=== PATIENT | female | born 1995 | race African-American/Black ===

== ENCOUNTER 2022-02-05 12:31 | Outpatient (REF) | payer OTHER, SELFPAY ==
--- NOTE | ~2022-02-05 | XR_ITS ---
EXAMINATION: XR LUMBOSACRAL SPINE CLINICAL INFORMATION: Pain. COMPARISON: None TECHNIQUE: Three views of the lumbosacral spine. FINDINGS: Questionable mild posterior coccygeal subluxation. No evidence of acute compression deformities or subluxation of the lumbar spine. Disc spaces are preserved. The posterior elements are normal in appearance. Sacroiliac joints are symmetric. Nonobstructive bowel gas pattern. Small pelvic phleboliths are noted. XR/XR lumbar spine 2-3V IMPRESSION: Suspect mild posterior subluxation of the coccyx. Correlate for point tenderness and history of a prior injury. Normal radiographic appearance of the lumbar spine.
--- NOTE | ~2022-02-05 | XR_ITS ---
EXAMINATION: XR KNEE, RIGHT CLINICAL INFORMATION: Pain. COMPARISON: None TECHNIQUE: Four views of the right knee. FINDINGS: No acute fractures or malalignment. No significant degenerative changes. No erosions. No chondrocalcinosis. Small joint effusion. XR/XR knee RT 3V IMPRESSION: No acute osseous abnormalities. Small joint effusion.
[2022-02-05 12:49] LABS: MANUAL DIFF FLAG NO
[2022-02-05 12:55] LABS: Basophils Percent Auto 0.4 % (0-2); Eosinophils Percent Auto 0.5 % (0-4); Hematocrit 28.8 % (37.0-47.0); Imm Gran Abs Auto 0.02 X10*3/uL (0.00-0.03); Imm Gran Pct Auto 0.3 % (0.0-0.4); Lymphocytes Absolute Auto 3.1 X10*3/uL (1.2-4.9); Lymphocytes Percent Auto 40.8 % (20-40); Mean Corpuscular HGB Conc 31.3 g/dl (31.0-35.0); Mean Corpuscular Hemoglobin 23.7 pg (27.0-33.0); Mean Corpuscular Volume 75.8 fL (80.0-98.0); Mean Platelet Volume 8.1 fL (9.4-12.3); Monocytes Absolute Auto 0.7 X10*3/uL (0.1-1.2); Monocytes Percent Auto 9.1 % (2-11); Neutrophils Absolute Auto 3.7 x10*3/uL (2.0-8.3); Neutrophils Percent Auto 48.9 % (45-73); Platelet Count 469 X10*3/uL (160-400); Red Cell Distribution Width 17.2 % (11.0-16.0); White Blood Count 7.5 X10*3/uL (4.8-10.8)
[2022-02-05 13:22] LABS: Alanine Aminotransferase 23 U/L (0-31); Albumin Level 3.9 g/dL (3.5-5.0); Alkaline Phosphatase 71 U/L (39-117); Anion Gap 11 (12-20); Aspartate Amino Transferase 19 U/L (5-31); Bilirubin Total 0.2 mg/dL (0.0-1.0); Blood Urea Nitrogen 10 mg/dL (9-16); Calcium 9.1 mg/dL (8.4-10.2); Carbon Dioxide 23 mmol/L (22-29); Chloride 108 mmol/L (96-108); Estimated Glomerular Filt Rate > 60; Glucose Fasting 93 mg/dL (60-99); Potassium 4.3 mmol/L (3.3-5.1); Sodium 138 mmol/L (135-145); Total Protein 7.1 g/dL (6.5-8.0)
[2022-02-05 13:44] LABS: TSH reflex Free T4 1.27 uIU/mL (0.32-4.0); Vitamin D 25-OH Total 10.2 ng/mL (>30)
[2022-02-05 14:39] LABS: Folate 10.8 ng/mL (> or = 4.0); Vitamin B12 312 pg/mL (200-900)
== END 2022-02-05 12:32 | disposition home or self-care (01) ==
LOC: HO.LAB 12:31
PROVIDERS: PCP Nurse Practitioner Family; Visit Provider Nurse Practitioner Family
DX: Z13.29 Encounter for screening for other suspected endocrine disorder (principal); M54.9 Dorsalgia, unspecified; M25.561 Pain in right knee; Z76.89 Persons encountering health services in other specified circumstances
CPT/HCPCS: 36415; 72100; 73562; 80053; 82306; 82607; 82746; 84443; 85025

== ENCOUNTER 2022-04-22 11:00 | Outpatient (RCR) | payer OTHER, SELFPAY ==
[2022-04-01 11:10] VITALS: BP 174/89; PULSE 79; O2SAT 98
--- NOTE | 2022-04-01 12:13 | MHC.PT.EP ---
[facility] [place] Office [place] Office [place] Office [address] Tiana Rendon [address] [phone] F: [phone] F: [phone] F: [phone] F: [phone] Physical Therapy Plan of Care Date of Evaluation: Date of Surgery: Diagnosis: dorsalgia Assessment: 26 YO FEMALE REF TO PT WITH 2 YR H/O PROGRESSIVE LBP AND H/O Rt KNEE PAIN. SHE RESIDES W BOYFRIEND AND 2 CHILDREN (1 AND 2 YO)- SHE IS A STAY AT HOME MOTHER. OBJECTIVE FINDINGS: DECR POSTURAL AWARENESS, WEAK ABDOMINALS/ PROX LEs, LIMITED TRUNK AROM AND HIP IR, AND FLUCTUATING PAIN IN JOSE LS WELL LEFT THORACIC. FUNCTIONALLY, Pt HAS LIMITED FUNCTIONAL SQUAT MECHANICS, LIMITED MONI TO HOUSE CHORES/ INCR WALKING/ BENDING/ CARRYING/ SLEEPING. 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 DUE TO CHILDCARE ISSUES, Pt IS REQUESTING PT 1x WK TO ADDRESS THE ABOVE FINDINGS, DEV A PROGR HEP, EASE TISSUE TENSION, AND DEV SELF-SX/ PAIN MGMT TECHN. Frequency and Duration: The patient will be seen 1 x WK x 8 WKS Short Term Goals: *Pt DEMON INDEP SELF-POSTURAL / BODY MECH CORRECTION W 3:3 TASKS IN 2 WKS *Pt'S LBP DECR TO 2-3/10 W REG ADLs IN 2 WKS *Pt DEMON MORE EFFICIENT FUNCT SQUAT MECH W RESPECT TO Rt KNEE PAIN IN 3 WKS Legal Operations Manager Goals: Pt INDEP W HEP PROGRESSION AND SELF-SX MGMT STRATEGIES IN 8 WKS Pt RESUME REG ADLs EVIDENT W IMPROVED OSWESTRY SCORE BY 5-8 POINTS (AT EVAL 20/45) IN 8 WKS Pt INCR LE STRENGTH BY 1 GRADE IN 8 WKS* Treatment Plan: Modalities to reduce pain, spasms and effusion. Manual therapy to restore motion and function. Therapeutic exercise to improve strength and flexibility. Neuromuscular re-education for posture and balance. Therapeutic activities to return to functional activities of daily living. Electronically signed by: Stephania Shaffer,PT Please sign and return to therapist. Thank you for your referral.
--- NOTE | 2022-05-07 07:56 | MHC.PT.DC ---
[facility] [place] Office [place] Office [place] Office [address] Tiana Rendon [address] [phone] F: [phone] F: [phone] F: [phone] F: [phone] Physical Therapy Discharge Report Diagnosis: dorsalgia Date of Surgery: Date of Evaluation: 04/01/22 Date of Discharge: 05/07/22 Treatments to Date: 3 Cancellations to Date: 1 No Shows to Date: 2 Discharge Status: Improved Function Independent with HEP Visit Non-compliance Discharge Summary: Pt BENEFITTED FROM PT TO INITIATE HEP AND SHE HAS BEEN EDUC RE POSTURE, BODY MECH, AND INITIATED PAIN MANAGEMENT TECHN. Pt DID NOT MEET HER PT GOALS AT THIS TIME DUE TO DECREASED COMPLIANCE W SCHEDULED PT APPTS AND IS D/C'D PER DEPT POLICY. Electronically signed by: Stephania Shaffer,PT Please sign and return to therapist. Thank you for your referral.
== END 2022-05-07 07:58 | disposition home or self-care (01) ==
LOC: HO.PT 11:00
PROVIDERS: PCP Nurse Practitioner Family; Visit Provider Nurse Practitioner Family
DX: M54.9 Dorsalgia, unspecified (principal)
CPT/HCPCS: 97110; 97162

== ENCOUNTER 2022-10-21 12:49 | Outpatient (REF) | payer OTHER, SELFPAY ==
--- NOTE | ~2022-10-21 | XR_ITS ---
EXAMINATION: XR KNEE, LEFT CLINICAL INFORMATION: Left knee pain. COMPARISON: None TECHNIQUE: Three views of the left knee. FINDINGS: There is no evidence of acute fracture or dislocation of the left knee. Left knee joint spaces are maintained. No effusion is appreciated. No destructive bony lesion. There appears be slight irregularity about the medial facet of the patella only on sunrise view and this may be artifactual in nature rather than possible chondromalacia patella since no definite subchondral cyst or diminished density as a secondary sign is seen within the patella. Clinical correlation to site of pain recommended. XR/XR knee LT 3V IMPRESSION: No significant bony abnormality of the left knee identified. Question possible chondromalacia patella medial facet of the patellofemoral joint.
--- NOTE | ~2022-10-21 | XR_ITS ---
EXAMINATION: XR SACRUM AND COCCYX CLINICAL INFORMATION: Sacrococcygeal disorder. COMPARISON: Lumbosacral spine of 02/06/2022. TECHNIQUE: AP pelvis and 2 views of the sacrum. FINDINGS: There is no evidence of acute fracture or diastases of the pelvis. Sacroiliac joints appear unremarkable. Hip joint spaces are maintained. No destructive bony lesions are identified. No significant abnormality of the lower lumbar spine identified. There is stable question subluxation of the coccyx compared to study of 02/05/2022. XR/XR sacrum coccyx min 2V IMPRESSION: Stable appearance compared to study of 02/05/2022 without evidence of acute fracture or diastases of the pelvis and with the appearance of posterior subluxation of the coccyx.
== END 2022-10-21 12:50 | disposition home or self-care (01) ==
LOC: HO.XRAY 12:49
PROVIDERS: PCP Nurse Practitioner Family; Visit Provider Nurse Practitioner Family
DX: M25.562 Pain in left knee (principal); G89.29 Other chronic pain; M53.3 Sacrococcygeal disorders, not elsewhere classified; M47.816 Spondylosis without myelopathy or radiculopathy, lumbar region; M62.830 Muscle spasm of back
CPT/HCPCS: 72220; 73562; 99202

== ENCOUNTER 2022-11-12 07:15 | Outpatient (REF) | payer OTHER, SELFPAY | END 2022-11-12 07:16 | disposition home or self-care (01) | LOC: HO.MRI 07:15 | PROVIDERS: PCP Nurse Practitioner Family; Visit Provider Nurse Practitioner Family | DX: Z13.89 Encounter for screening for other disorder (principal) ==

== ENCOUNTER → 2022-12-09 15:36 | Outpatient (BNVA) | payer OTHER, SELFPAY | PROVIDERS: PCP Nurse Practitioner Family; Visit Provider Nurse Practitioner Family ==

== ENCOUNTER 2023-02-17 10:00 | Outpatient (RCR) | payer OTHER, SELFPAY ==
[2022-12-02 12:09] VITALS: BP 139/92
--- NOTE | 2022-12-02 13:46 | MHC.PT.EP ---
[facility] [place] Office [place] Office [place] Office [address] Tiana Rendon [address] [phone] F: [phone] F: [phone] F: [phone] F: [phone] Physical Therapy Plan of Care Date of Evaluation: Date of Surgery: N/A Diagnosis: Pain in left knee Chondromalacia, left knee Assessment: Pt is a pleasant 27yo F who presents to PT with L knee pain. She presents to PT with current impairments in pain, decreased L knee flexion, decreased LE strength, L genu recurvatum, decreased balance, and impaired gait. She is limited functionally by getting in/out of shower, putting shoes on, prolonged standing, bending, walking, and stair navigation. She is a good candidate for skilled PT in order to address current impairments to facilitate return to PLOF. She is recommended to be seen 2x/week for 4 weeks and will be reassessed at that time. Frequency and Duration: The patient will be seen 2x/week for 4 weeks Short Term Goals: Pt will be I with HEP to promote self management of symptoms Pt will improve L knee flexion by at least 10 degrees [facility] Goals: Pt will achieve full ROM and strength throughout L knee to assist with standing and walking Pt will ascend/descend 1 flight of stairs with reciprocal gait pattern Pt will demonstrate improvements in function as evidenced by statistically significant improvement in LEFI outcome measure Treatment Plan: Modalities to reduce pain, spasms and effusion. Manual therapy to restore motion and function. Therapeutic exercise to improve strength and flexibility. Neuromuscular re-education for posture and balance. Therapeutic activities to return to functional activities of daily living. Electronically signed by: Nicole Reyes, PT, DPT Please sign and return to therapist. Thank you for your referral.
--- NOTE | 2023-04-01 14:21 | MHC.PT.DC ---
[facility] [place] Office [place] Office [place] Office [address] Tiana Rendon [address] [phone] F: [phone] F: [phone] F: [phone] F: [phone] Physical Therapy Discharge Report Diagnosis: Pain in left knee Chondromalacia, left knee Date of Surgery: N/A Date of Evaluation: 12/02/22 Date of Discharge: 04/01/23 Treatments to Date: 5 Cancellations to Date: 5 No Shows to Date: 5 Discharge Status: Visit Non-compliance Discharge Summary: Pt was seen for PT from 12/02/22-02/17/23. Her last attended appointment was 02/17/23. She has had 5 cancellations and 3 no-show appointments since SOC. She is being D/C from skilled PT. Pt current level of function unknown at this time. Electronically signed by: Nicole Reyes, PT, DPT Please sign and return to therapist. Thank you for your referral.
== END 2023-04-01 14:21 | disposition home or self-care (01) ==
LOC: HO.PT 10:00
PROVIDERS: PCP Nurse Practitioner Family; Visit Provider Nurse Practitioner Family
DX: M25.562 Pain in left knee (principal); M94.262 Chondromalacia, left knee
CPT/HCPCS: 97110; 97162; 97164; 97530

== ENCOUNTER 2023-02-24 08:44 | Outpatient (REF) | payer OTHER, SELFPAY ==
--- NOTE | ~2023-02-24 | XR_ITS ---
EXAMINATION: XR FOOT, LEFT CLINICAL INFORMATION: Left foot pain COMPARISON: None available. TECHNIQUE: AP, lateral, and oblique views of the left foot. FINDINGS: There is soft tissue swelling seen adjacent to the lateral aspect 5th metatarsal. No acute fracture or dislocation is evident. Joint spaces are maintained. There is some degenerative spurring with sclerosis seen about the talar navicular joint and naviculocuneiform joints. XR/XR foot LT 2V IMPRESSION: No acute fracture, dislocation or significant bony abnormality of the left foot identified. Mild soft tissue swelling laterally. Mild degenerative change as described.
[2023-02-24 10:19] LABS: Alanine Aminotransferase 23 U/L (0-31); Alkaline Phosphatase 81 U/L (39-117); Anion Gap 15 (12-20); Aspartate Amino Transferase 34 U/L (5-31); Bilirubin Total 0.3 mg/dL (0.0-1.0); Blood Urea Nitrogen 12 mg/dL (9-16); Calcium 9.4 mg/dL (8.4-10.2); Carbon Dioxide 23 mmol/L (22-29); Chloride 107 mmol/L (96-108); Cholesterol 180 mg/dL; Estimated Glomerular Filt Rate > 60; Glucose Random 93 mg/dL (60-115); HDL Cholesterol 55 mg/dL; Iron 31 mcg/dL (30-160); LDL Cholesterol Calculated 106 mg/dl; Percent Iron Saturation 8 % (15-50); Potassium 3.7 mmol/L (3.3-5.1); Sodium 141 mmol/L (135-145); Total Iron Binding Capacity 402 mcg/dL (228-428); Total Protein 7.6 g/dL (6.5-8.0); Triglycerides 97 mg/dL; Unsaturated Iron Binding 371 ug/dL
[2023-02-24 10:24] LABS: Ferritin 16 ng/mL (10-122); TSH reflex Free T4 1.28 uIU/mL (0.32-4.0); Vitamin D 25-OH Total 13.7 ng/mL (>30)
== END 2023-02-24 08:45 | disposition home or self-care (01) ==
LOC: HO.XRAY 08:44
PROVIDERS: PCP Nurse Practitioner Family; Visit Provider Nurse Practitioner Family
DX: M79.672 Pain in left foot (principal); Z13.220 Encounter for screening for lipoid disorders; D64.9 Anemia, unspecified; Z13.29 Encounter for screening for other suspected endocrine disorder; Z13.21 Encounter for screening for nutritional disorder
CPT/HCPCS: 36415; 73620; 80053; 80061; 82306; 82728; 83540; 84443

== ENCOUNTER 2023-04-04 13:53 | Emergency (ER) | payer OTHER, SELFPAY ==
--- NOTE | 2023-04-04 13:56 | ED.GENADULT ---
HPI - General Adult General Chief complaint: Extremity Problem Stated complaint: Swollen Feet Time Seen by Provider: 04/04/23 14:59 Source: patient Mode of arrival: ambulatory Limitations: no limitations History of Present Illness HPI narrative: Patient is a 27 year old assigned female at with a history of presenting to the emergency department today with left foot and left hand pain. Patient states that over the last 4 months she has had intermittent left foot and left hand pain. Patient states that she has known osteoarthritis. Patient denies any dizziness, lightheadedness, abdominal pain, nausea, vomiting, fever, chills, blurry vision, double vision, loss of vision, chest pain, difficulty breathing, shortness of breath, back pain, night sweats, pain with urination, increased urinary frequency, increased urinary urgency, blood in her urine or stool, syncope or a near syncopal episode, recent trauma or falls, bowel incontinence, bladder incontinence, bowel retention, bladder retention, or any other complaints at this time. Onset (ago): month(s) (4) Location: left, upper extremity and lower extremity Severity: mild Severity scale (1-10): 3 Quality: aching and dull Pain Consistency: constant Relieving factors: none Exacerbating factors: none Associated symptoms: denies other symptoms Treatments prior to arrival: none Related Data Previous Rx's Medication Instructions Recorded ascorbic acid (vitamin C) 250 mg 250 mg PO DAILY #90 tabs 02/07/22 tablet ferrous sulfate 325 mg (65 mg 325 mg PO DAILY #90 tabs 02/07/22 iron) tablet lidocaine 4 % topical patch 2 patch topical DAILY PRN pain #30 09/10/22 (Aspercreme (lidocaine)) ea diclofenac sodium 1 % topical gel 2 g topical QID PRN pain #100 grams 12/09/22 (Arthritis Pain (diclofenac)) ibuprofen 800 mg tablet 800 mg PO Q8H PRN pain #30 tabs 12/09/22 methocarbamol 750 mg tablet 750 mg PO BID PRN pain 30 days #60 12/09/22 tabs cholecalciferol (vitamin D3) 1,250 1,250 mcg PO QWEEK #12 caps 02/25/23 mcg (50,000 unit) capsule naproxen 500 mg tablet 500 mg PO BID 7 days #14 tabs 04/04/23 prednisone 20 mg tablet 20 mg PO DAILY 7 days #7 tabs 04/04/23 Allergies Allergy/AdvReac Type Severity Reaction Status Date / Time No Known Allergies Allergy Verified 02/24/23 08:16 [No Known Allergies*] Review of Systems Constitutional: Constitutional: Reports no additional constitutional complaints, Denies chills, Denies fever(s) and Denies night sweats Eyes: Eyes: Reports no additional eye complaints, Denies blurry vision, Denies change in vision, Denies diplopia, Denies eye discharge, Denies loss of vision and Denies eye pain ENT: Denies dizziness Cardiovascular: Cardiovascular: Reports no additional cardiovascular complaints, Denies chest pain, Denies lightheadedness, Denies Loss of Consciousness and Denies dyspnea Respiratory: Respiratory: Reports no additional respiratory complaints and Denies dyspnea Gastrointestinal: Gastrointestinal: Reports no additional gastrointestinal complaints, Denies abdominal pain, Denies melena, Denies hematochezia, Denies change in bowel habits and Denies change in stool character Genitourinary: Genitourinary: Denies hematuria, Denies urinary frequency, Denies dysuria, Denies urinary incontinence, Denies urinary hesitancy and Denies urinary urgency Musculoskeletal: Musculoskeletal: Reports no additional musculoskeletal complaints, Denies numbness and Denies tingling Comments: left ankle pain, left wrist pain Neurologic: Denies dizziness, Denies loss of vision, Denies numbness and Denies tingling Psychiatric: Psychiatric: Reports no additional psychiatric complaints Endocrine: Endocrine: Reports no additional endocrine complaints Hematologic/Lymphatic: Hematologic/Lymphatic: Reports no additional hematologic/lymphatic complaints Allergic/Immunologic: Allergic/Immunologic: Reports no additional allergic/immunologic complaints [facility] Past Medical History Attestation statement: The following information was validated with the patient. Source: old records reviewed and nursing notes reviewed Medical History Back pain Bilateral ankle pain Encounter to establish care Left knee pain Morbid obesity with BMI of 50.0-59.9, adult Right knee pain Screening for diabetes mellitus Screening for hypothyroidism Surgical History History of [place] teeth removed Family History Family History Mother High blood pressure Sickle cell anemia Father Cancer Social History Social History Housing: Apartment Alcohol intake: current Alcohol intake frequency: holidays/special occasions only Patient Tobacco Use Status: Current everyday Tobacco user Tobacco use type: Cigarette Cigarettes Per Day: 3 e-Cigarette/Vaping Use: Never Used Second Hand Smoke Exposure: Yes Advance Directives: No Advance Directives Information Provided: No service: No Current occupational status: unemployed Cognitive needs: No Hearing needs: No Vision needs: Yes Physical Exam ED Vital Signs: Vital Signs - 24 hr 04/04/23 13:57 Temperature 97.8 F Pulse Rate 78 Respiratory Rate 20 Blood Pressure 182/116 H Pulse Oximetry 98 Oxygen Delivery Method Room Air BMI result Body Mass Index 56.1 Const General: cooperative, no acute distress, alert and awake Nutritional Appearance: well nourished Orientation/consciousness: patient oriented x3 Limitations: no limitations HENMT Head: Yes normal to inspection and Yes atraumatic Ears: hearing grossly normal bilaterally and external ears normal General nose exam: Normal external nose present, no nasal discharge noted and no epistaxis Face and sinus: Yes normal facial exam, No abrasion and No laceration Mouth: Normal oral and palatal mucosa present, no drooling and no muffled voice Eyes General: appearance normal, both eyes and all related structures Periorbital: periorbital findings normal Eyelids: Yes eyelids normal Conjunctivae: conjunctivae normal Pupils: Equal, round and reactive pupils present EOM: EOMs intact bilaterally Neck Neck: Yes normal visual inspection, Yes full ROM and Yes no lymphadenopathy Chest Chest palpation & inspection: normal inspection of the chest Resp Effort & Inspection: normal respiratory effort and able to speak in complete sentences GI Inspection: Yes normal to inspection Neuro General: patient oriented x3 and moves all extremities Cranial nerves: Yes Equal, round and reactive pupils present Cognition (Neuro): normal cognition Motor exam (neuro): 5/5 motor strength present throughout Sensory Exam: Normal double simultaneous stimulation for sensation Coordination: [id number] test normal Extrem General: Yes normal to inspection, Yes full ROM and Yes capillary refill normal Psych Appearance: grossly normal Mental Status: mental status grossly normal Affect: normal affect Attitude: cooperative Thought process: Normal thought process present Thought content: Normal thought content present Insight: Good insight present (Psych) Course Course Course Narrative: This is a rapid medical exam: Additional HPI, ROS, PE not included below will be deferred to primary provider. Patient is a 27-year-old female with history of thrombocytopenia, lumbar spondylosis, anemia, sickle cell trait presenting to the emergency department with complaint of left hand and foot pain for 4-5 months. Had x-ray of foot and was told she had degenerative changes. Denies any fall or other trauma. Noted to be hypertensive in triage. Is not on blood pressure medication at this time, has follow up appointment in May. Plan: EKG, labs Medications Administered Discontinued Medications Generic Name Dose Route Start Last Admin Trade Name Joseluis PRN Reason Stop Dose Admin Ketorolac Tromethamine 15 mg 04/04/23 15:17 04/04/23 15:29 Ketorolac Tromethamine 15 Mg/Ml Vial IM 04/04/23 15:18 15 mg ONCE ONE Administration Medical Decision Making Medical Decision Making [facility] Narrative: Patient is a 27 year old assigned female at with a history of osteoarthritis presenting to the emergency department today with left wrist and left foot / ankle pain. Patient's physical exam was unremarkable. Patient's blood work was unremarkable. Patient's urine showed no acute process. Patient's EKG was unremarkable. I explained my physical exam findings as well as all test results to the patient. I answered all questions asked by the patient. Patient received IM Toradol which she stated helped her symptoms significantly. I stressed the importance of the patient taking her medication as prescribed. I stressed the importance of the patient following up with her primary care provider and an orthopedic provider. I stressed the importance of the patient returning to the emergency department immediately if her symptoms were to worsen or if she were to develop any dizziness, shortness of breath, difficulty breathing, chest pain, blurry vision, loss of vision, nausea, vomiting, abdominal pain, fever, chills, back pain, or any other complaints. Patient verbalized agreement and understanding with this treatment plan and discharge. Differential Diagnosis Differential Diagnoses: The differential diagnosis associated with the presentation includes Osteoarthritis NSTEMI STEMI Edema Admission/Observation Consideration of admission/observation: Escalation of care including admission/observation considered Patient would have been admitted to the hospital had her work up had any findings where hospital admission was appropriate and her clinical presentation warranted hospital admission. Lab Data [facility] Lab Attestation statement: I reviewed the patient's lab results. My interpretation of these studies and their corresponding values is that they are grossly normal. 04/04/23 14:09 04/04/23 14:09 Labs: Lab Results 04/04/23 04/04/23 04/04/23 Range/Units 14:09 14:09 14:09 WBC 8.0 (4.8-10.8) X10*3/uL RBC 4.04 L (4.20-5.50) X10*6/uL Hgb 10.5 L (12.0-16.0) g/dl Hct 32.6 L (37.0-47.0) % MCV 80.7 (80.0-98.0) fL MCH 26.0 L (27.0-33.0) pg MCHC 32.2 (31.0-35.0) g/dl RDW 15.9 (11.0-16.0) % Plt Count 424 H (160-400) X10*3/uL MPV 8.1 L (9.4-12.3) fL Immature Gran % (Auto) 0.3 (0.0-0.4) % Neut % (Auto) 57.5 (45-73) % Lymph % (Auto) 33.5 (20-40) % [place]duffie % (Auto) 8.3 (2-11) % Eos % (Auto) 0.3 (0-4) % Baso % (Auto) 0.1 (0-2) % Lymph # (Auto) 2.7 (1.2-4.9) X10*3/uL [place]duffie # (Auto) 0.7 (0.1-1.2) X10*3/uL Eos # (Auto) 0.0 (0.0-0.4) X10*3/uL Baso # (Auto) 0.0 (0.0-0.2) X10*3/uL Abs Immat Gran (auto) 0.02 (0.00-0.03) X10*3/uL Absolute Neuts (auto) 4.6 (2.0-8.3) x10*3/uL Absolute Nucleated RBC 0.000 (0.0-0.012) X10*3/uL Nucleated RBC % (auto) 0.0 (0.0-0.2) /100WBC Sodium 137 (135-145) mmol/L Potassium 4.0 (3.3-5.1) mmol/L Chloride 108 (96-108) mmol/L Carbon Dioxide 20 L (22-29) mmol/L Anion Gap 13 (12-20) BUN 9 (9-16) mg/dL Creatinine 0.81 (0.5-1.4) mg/dL Estim Creat Clear Calc 151.7 Estimated GFR > 60 Random Glucose 91 (60-115) mg/dL Calcium 8.9 (8.4-10.2) mg/dL Total Bilirubin 0.2 (0.0-1.0) mg/dL AST 21 (5-31) U/L ALT 23 (0-31) U/L Alkaline Phosphatase 71 (39-117) U/L Troponin I High Sens < 2.7 (<3.5-17.0) ng/L Total Protein 7.6 (6.5-8.0) g/dL Albumin 4.1 (3.5-5.0) g/dL Independent Interpretation I performed an independent interpretation of an: EKG Interpretation: Vent. Rate: 076 BPM ? ? Atrial Rate: 076 BPM P-R Int: 174 ms? QRS Dur: 084 ms QT Int: 418 ms ? ? ? P-R-T Axes: 038 008 003 degrees QTc Int: 470 ms ? Normal sinus rhythm Minimal voltage criteria for LVH, may be normal variant ( R in aVL ) Borderline ECG No previous ECGs available Electronically Signed By:RAMON DE JESUS MD Dictated By: Ramon De Jesus MD Signed By: Electronically signed by Ramon De Jesus MD 04/04/23 [id number] Prescription Management I considered prescription management with: Pain Medication (patient prescribed pain medication for her osteoarthritis) Discharge Plan Discharge Clinical Impression: Acute ankle pain, Acute wrist pain, Osteoarthritis Patient Disposition: Home, Self-Care Instructions: Osteoarthritis (DC), Arthralgia (ED) Additional Instructions: Follow up with your primary care provider and an orthopedic provider. Return to the emergency department immediately if your symptoms worsen or if you develop any dizziness, shortness of breath, difficulty breathing, chest pain, blurry vision, loss of vision, nausea, vomiting, abdominal pain, fever, chills, back pain, or any other complaints. Prescriptions: New prednisone 20 mg tablet 20 mg PO DAILY 7 Days Qty: 7 0RF naproxen 500 mg tablet 500 mg PO BID 7 Days Qty: 14 0RF No Action ferrous sulfate 325 mg (65 mg iron) tablet 325 mg PO DAILY Qty: 90 0RF ascorbic acid (vitamin C) 250 mg tablet 250 mg PO DAILY Qty: 90 0RF cholecalciferol (vitamin D3) 1,250 mcg (50,000 unit) capsule 1,250 mcg PO QWEEK Qty: 12 0RF lidocaine [Aspercreme (lidocaine)] 4 % adhesive patch,medicated 2 patch topical DAILY PRN (Reason: pain) Qty: 30 1RF ibuprofen 800 mg tablet 800 mg PO Q8H PRN (Reason: pain) Qty: 30 0RF diclofenac sodium [Arthritis Pain (diclofenac)] 1 % gel 2 g topical QID PRN (Reason: pain) Qty: 100 0RF Rx Instructions: apply to single elbow, wrist or hand; for hand includes palm/fingers/back of hand methocarbamol 750 mg tablet 750 mg PO BID PRN (Reason: pain) 30 Days Qty: 60 0RF Referrals: [facility] [Provider Group] (Call to establish and follow up with an orthopedic provider. ) Aruna Hidalgo FNP [Primary Care Provider] - Stand Alone Forms: Work/School Release Interventions: ED Discharge Assessment Last Done: 04/04/23 15:33 Discharge Date/Time: 04/04/23 15:33 Print Language: Slovak
[2023-04-04 13:57] VITALS: BP 182/116; PULSE 78; RESP 20; TEMP 36.6; O2SAT 98; BMI 56.1
--- NOTE | 2023-04-04 14:00 | ECG_ITS ---
Test Reason : hypertensive Blood Pressure : / mmHG Vent. Rate : 076 BPM Atrial Rate : 076 BPM P-R Int : 174 ms QRS Dur : 084 ms QT Int : 418 ms P-R-T Axes : 038 008 003 degrees QTc Int : 470 ms Normal sinus rhythm Minimal voltage criteria for LVH, may be normal variant ( R in aVL ) Borderline ECG No previous ECGs available Referred By: Janett Suarez Electronically Signed By:BALDOMERO BERMAN MD
[2023-04-04 14:13] LABS: MANUAL DIFF FLAG NO
[2023-04-04 14:16] LABS: Basophils Percent Auto 0.1 % (0-2); Eosinophils Percent Auto 0.3 % (0-4); Hematocrit 32.6 % (37.0-47.0); Hemoglobin 10.5 g/dl (12.0-16.0); Imm Gran Abs Auto 0.02 X10*3/uL (0.00-0.03); Imm Gran Pct Auto 0.3 % (0.0-0.4); Lymphocytes Absolute Auto 2.7 X10*3/uL (1.2-4.9); Lymphocytes Percent Auto 33.5 % (20-40); Mean Corpuscular HGB Conc 32.2 g/dl (31.0-35.0); Mean Corpuscular Volume 80.7 fL (80.0-98.0); Mean Platelet Volume 8.1 fL (9.4-12.3); Monocytes Absolute Auto 0.7 X10*3/uL (0.1-1.2); Monocytes Percent Auto 8.3 % (2-11); Neutrophils Absolute Auto 4.6 x10*3/uL (2.0-8.3); Neutrophils Percent Auto 57.5 % (45-73); Platelet Count 424 X10*3/uL (160-400); Red Blood Count 4.04 X10*6/uL (4.20-5.50); Red Cell Distribution Width 15.9 % (11.0-16.0)
[2023-04-04 14:30] LABS: Alanine Aminotransferase 23 U/L (0-31); Albumin Level 4.1 g/dL (3.5-5.0); Alkaline Phosphatase 71 U/L (39-117); Anion Gap 13 (12-20); Aspartate Amino Transferase 21 U/L (5-31); Bilirubin Total 0.2 mg/dL (0.0-1.0); Blood Urea Nitrogen 9 mg/dL (9-16); Calcium 8.9 mg/dL (8.4-10.2); Carbon Dioxide 20 mmol/L (22-29); Chloride 108 mmol/L (96-108); Creatinine Clr Calc Pharmacy 151.7; Estimated Glomerular Filt Rate > 60; Glucose Random 91 mg/dL (60-115); Sodium 137 mmol/L (135-145); Total Protein 7.6 g/dL (6.5-8.0)
[2023-04-04 14:39] LABS: Troponin-I High Sensitivity < 2.7 ng/L (<3.5-17.0)
[2023-04-04] MEDS: Ketorolac Tromethamine 15 MG/ML VIAL IM (15:29)
== END 2023-04-04 15:33 | disposition home or self-care (01) ==
PROVIDERS: Registered Nurse Emergency; Emergency Provider Emergency Medicine Emergency Medical Services; PCP Nurse Practitioner Family
DX: R60.0 Localized edema (principal); M79.642 Pain in left hand; M79.672 Pain in left foot; R94.31 Abnormal electrocardiogram [ECG] [EKG]; Z79.899 Other long term (current) drug therapy; F17.210 Nicotine dependence, cigarettes, uncomplicated; Z71.6 Tobacco abuse counseling
CPT/HCPCS: 36415; 80053; 84484; 85025; 93005; 96372; 99283; 99284; J1885

== ENCOUNTER → 2023-04-04 14:00 | Outpatient (BNV) | payer OTHER, SELFPAY | PROVIDERS: Emergency Provider Emergency Medicine Emergency Medical Services; PCP Nurse Practitioner Family; Visit Provider Internal Medicine Cardiovascular Disease | DX: I10 Essential (primary) hypertension (principal) | CPT/HCPCS: 93010 ==

== ENCOUNTER 2023-05-27 08:32 | Outpatient (AMB) | payer OTHER, SELFPAY ==
[2023-05-27 08:33] VITALS: BP 168/110; PULSE 92; O2SAT 100; BMI 55.3
--- NOTE | 2023-05-27 08:33 | A.OFFPC_ITS ---
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 Allergies No Known Allergies [No Known Allergies*] Allergy (Verified 05/27/23 08:43) Medication List - Last Reconciled 05/27/23 by ESTEPHANIA Manzo ibuprofen 800 mg PO Q8H PRN Tobacco use date assessed: 05/27/23 Dental Screening Dental Screen Date: 05/27/23 Did you have a dental visit in the last 12 months?: No Did you have a dental problem in the last 6 months where you did not have access to dental care?: No Was dental information given to patient?: Patient has dentist HPI Elevated Blood pressure HPI Details Patient is a 28-year-old female who presents today due to elevated blood pressures at home. Medical history significant for tension headache, anemia, lumbar spondylosis, depression. Patient reports systolic blood pressures at home between 140 and 150s, diastolic blood pressures between 90 and 100s. She reports elevated blood pressures since given to her child in 2019. She reports that she was on labetalol in the past. Reports intermittent headaches, no headache now. Denies shortness of breath or chest pain, no vision changes. Blood pressure elevated in the office today. [facility] Medical History (Updated 05/27/23 @ 09:29 by ESTEPHANIA Manzo) Morbid obesity with BMI of 50.0-59.9, adult Left knee pain Bilateral ankle pain Back pain Right knee pain Screening for diabetes mellitus Screening for hypothyroidism Encounter to establish care Surgical History [place] teeth removed History of Family History Mother High blood pressure Sickle cell anemia Father Cancer Social History Housing: Apartment Alcohol intake: current Alcohol intake frequency: holidays/special occasions only Patient Tobacco Use Status: Current everyday Tobacco user Tobacco use type: Cigarette Cigarettes Per Day: 3 e-Cigarette/Vaping Use: Never Used Second Hand Smoke Exposure: Yes service: No Current occupational status: unemployed Cognitive needs: No Hearing needs: No Vision needs: Yes Questionnaire Thrive Questionnaire Date Thrive assessed: 09/10/22 AUDIT C Alcohol Use Questionnaire (AUDIT-C) 1. How often do you have a drink containing alcohol?: Never 3. How often do you have six or more drinks on one occasion?: Never Total Score: 0 Score Reviewed/Action Taken: No JM-7 AMB Questionnaire JM-7 Date JM - 7 assessed: 09/10/22 Source: Developed by Drs. David Lennon, Yasmine Braxton, Noah uA and colleagues, with an educational javi from [employer]. Review of Systems Const Denies body aches, Denies chills, Denies fever(s) and Reports headache(s) (Intermittent) Eyes Denies change in vision ENT Denies dizziness, Denies otalgia, Reports headache(s) (Intermittent), Denies nasal discharge, Denies sinus pain and Denies sore throat Card Denies chest pain, Denies edema, Denies lightheadedness and Denies dyspnea Resp Denies dyspnea and Denies wheezing GI Denies abdominal pain Denies dysuria Musc Denies myalgias Skin/Breast Denies rash Neuro Denies dizziness and Reports headache(s) (Intermittent) Aller/Immun Denies wheezing Physical exam (Primary Care) Vital Signs: Last Vital Signs Pulse 92 05/27/23 08:33 BP 168/110 H 05/27/23 08:33 Pulse Ox 100 05/27/23 08:33 Oxygen Delivery Method Room Air 05/27/23 08:33 BMI result Body Mass Index 55.3 Tobacco/Smoking Status: Tobacco use Status Tobacco use date assessed 05/27/23 05/27/23 08:33 Patient Tobacco Use Status Current everyday Tobacco 05/27/23 08:33 Tobacco use type Cigarette 05/27/23 08:33 e-Cigarette/Vaping Use Never Used 05/27/23 08:33 Thrive Assessment: Date of Thrive Assessment Date Thrive assessed 09/10/22 05/27/23 08:33 Const General: cooperative and no acute distress Orientation/consciousness: patient oriented x3 HENMT Head: Yes normocephalic and Yes atraumatic Throat: Yes posterior oropharynx normal Eyes General: appearance normal, both eyes and all related structures Pupils: Equal, round and reactive pupils present Neck Neck: Yes normal visual inspection and Yes full ROM Resp Effort & Inspection: normal respiratory effort and able to speak in complete sentences Auscultation: clear to auscultation bilaterally, no crackles, no rales, no rhonchi and no wheezes Cardio Rate: regular rate Rhythm: regular rhythm Heart sounds: S1 normal heart sound present, S2 normal heart sound present and no murmurs GI Auscultation: normal bowel sounds Skin General skin exam: no rashes or lesions noted Neuro General: patient oriented x3 Cranial nerves: Yes Equal, round and reactive pupils present Gait exam (Neuro): Normal gait present Extrem General: Yes full ROM and No edema Assessment and Plan Assessment & Plan (1) Hypertension: Code(s): I10 - Essential (primary) hypertension Qualifiers: Hypertension type: unspecified Qualified Code(s): I10 - Essential (primary) hypertension Plan: Goal BP equal or less than 140/90 Patient denies acute symptoms in the office today Start metoprolol 25 mg daily-possible adverse reactions were reviewed with the patient and when to notify provider Low-sodium diet and weight loss Follow-up with nurse in 2 weeks for BP recheck Monitor blood pressures at home (2) Morbid obesity with BMI of 50.0-59.9, adult: Code(s): E66.01 - Morbid (severe) obesity due to excess calories; Z68.43 - Body mass index [BMI] 50.0-59.9, adult Plan: Reinforced healthy food choices and exercise as tolerated Patient declined referral to weight management Plan Follow-up in 3 months or sooner as needed Signs and symptoms reviewed when to notify provider or go to the emergency department Medications: New metoprolol succinate ER 25 mg PO DAILY 30 tabs 2RF I10 - Essential (primary) hypertension Coding Level of Care Code Est Pt Level 3 (38265) Diagnoses Hypertension, unspecified type I10 Hypertension type: unspecified Morbid obesity with BMI of 50.0-59.9, adult E66.01; Z68.43
[2023-05-27 08:50] VITALS: BP 168/100
== END 2023-05-27 08:59 | disposition home or self-care (01) ==
PROVIDERS: PCP Nurse Practitioner Family; Visit Provider Nurse Practitioner Family
DX: I10 Essential (primary) hypertension (principal); E66.01 Morbid (severe) obesity due to excess calories; Z68.43 Body mass index [BMI] 50.0-59.9, adult
CPT/HCPCS: 99213

== ENCOUNTER 2023-08-03 12:44 | Emergency (ER) | payer OTHER, SELFPAY ==
--- NOTE | ~2023-08-03 | CT_ITS ---
EXAMINATION: CT HEAD WITHOUT CONTRAST CLINICAL INFORMATION: Headache and hypertension. COMPARISON: There are no prior studies available for comparison. TECHNIQUE: Multidetector CT imaging of the head was obtained without the use of intravenous contrast. Coronal and sagittal reformatted images were generated at the technologist workstation. This CT examination was performed using dose optimization techniques as appropriate, variously including the following: *Automated exposure control *Adjustment of mA and/or kV according to patient size (this includes techniques or standardized protocols for targeted exams where dose is matched to indication/reason for exam; i.e. extremities or head) *Use of iterative reconstruction technique DLP: 674 mGy-cm. FINDINGS: There is no evidence of acute intracranial hemorrhage or territorial infarction. No abnormal mass-effect or midline shift is seen. [place] to white matter differentiation is well preserved. No extra-axial fluid collections are identified. The ventricles and sulci are normal in size. There is no abnormal attenuation within the brain parenchyma. There are no acute osseous or soft tissue abnormalities. There is mild prominence of the bilateral temporalis muscles, which may be consistent with sequelae of bruxism. There is a partially empty sella. The frontal sinuses are hypoplastic bilaterally. The mastoid air cells and the other visualized paranasal sinuses are well aerated. There are multiple studs and jewelry in the oral cavity and soft tissues. CT/CT head/brain wo IV con IMPRESSION: There are no acute bleeds or territorial infarcts. No masses are demonstrated. The paranasal sinuses and mastoid air cells are clear.
[2023-08-03 13:47] VITALS: BP 176/129; PULSE 79; RESP 16; TEMP 36; O2SAT 98; BMI 57.1
--- NOTE | 2023-08-03 13:47 | ED.HA ---
HPI - Headache General Chief Complaint: Headache Stated Complaint: Migraines 2 weeks Time Seen by Provider: 08/03/23 15:25 Source: patient Mode of arrival: ambulatory Limitations: no limitations History of Present Illness HPI Narrative: This is a 28-year-old female presenting for headache for the past 2 weeks, fluctuating in intensity, not improving. Patient reports headache is predominantly over the right side, described as pounding and at times has pain behind the right eye w/ tearing. Took 2 Excedrin this morning with little to no relief. Doesnt feel like her typical headache. She denies visual changes/loss, nausea, fevers, chills, vomiting, abd pain, chest pain, shortness of breath, jaw pain. Patient reports she is on antihypertensive medications and has been taking them as prescribed. Related Data Previous Rx's Medication Instructions Recorded ibuprofen 800 mg tablet 800 mg PO Q8H PRN pain #30 tabs 12/09/22 metoprolol succinate 50 mg 50 mg PO DAILY #30 tabs 07/03/23 tablet,extended release 24 hr diphenhydramine HCl 25 mg capsule 25 mg PO TID PRN allergic reaction 08/03/23 (Benadryl) #20 caps ketorolac 10 mg tablet 10 mg PO TID PRN pain 5 days #15 08/03/23 tabs metoclopramide HCl 10 mg tablet 10 mg PO Q6H PRN headache #20 tabs 08/03/23 (Reglan) Allergies Allergy/AdvReac Type Severity Reaction Status Date / Time No Known Allergies Allergy Verified 08/03/23 13:47 [No Known Allergies*] Review of Systems Review of Systems: Constitutional : No Weight loss, No Fever, No Chills, No Fatigue, No Malaise ENT/Mouth : No sore throat, No Rhinorrhea Eyes: No Eye Pain, No Swelling, No Redness Cardiovascular : No Chest Pain, No SOB, No Dyspnea on Exertion, No Orthopnea, No Edema, No Palpitations Respiratory : No Cough, No Sputum, No Wheezing Gastrointestinal : No Nausea, No Vomiting, No Diarrhea, No Constipation, No abdominal Pain, No Hematochezia, No Melena Genitourinary : No Dysuria, No Urinary Frequency, No Hematuria, Musculoskeletal : No joint pain, No Myalgias, No Joint Swelling Skin : No Skin Lesions, No rash Neuro : No Weakness, No Numbness, No Dizziness, + Headache Psych : No Anxiety/Panic, No Depression All other systems reviewed and are negative Yes all other systems are reviewed and are negative [facility] Past Medical History Attestation statement: The following information was validated with the patient. Source: old records reviewed and nursing notes reviewed Medical History (Updated 08/03/23 @ 15:43 by KEILA Donaldson) Morbid obesity with BMI of 50.0-59.9, adult Left knee pain Bilateral ankle pain Back pain Right knee pain Screening for diabetes mellitus Screening for hypothyroidism Encounter to establish care Surgical History [place] teeth removed History of Family History Family History Mother High blood pressure Sickle cell anemia Father Cancer Social History Housing: Apartment Alcohol intake: current Alcohol intake frequency: holidays/special occasions only Patient Tobacco Use Status: Current everyday Tobacco user Tobacco use type: Cigarette Cigarettes Per Day: 3 Smoked in Last 30 Days: Yes e-Cigarette/Vaping Use: Never Used Second Hand Smoke Exposure: Yes Use of substances other than those prescribed or required for medical reasons: Yes Substance Use Type: Marijuana Advance Directives: No Advance Directives Information Provided: No service: No Current occupational status: unemployed Cognitive needs: No Hearing needs: No Vision needs: Yes Physical Exam Vital Signs: Vital Signs: Last Vital Signs Temp 98.7 F 08/03/23 15:16 Pulse 62 08/03/23 16:12 Resp 16 08/03/23 16:12 BP 168/106 H 08/03/23 16:12 Pulse Ox 100 08/03/23 16:12 O2 Del Method Room Air 08/03/23 16:12 BMI result Body Mass Index 57.1 HTN likely from pain Appearance: Alert.? Oriented X3.? No acute distress.? Head: Normocephalic, atraumatic, no step-offs or deformities Eyes: Pupils equal, round and reactive to light.? ENT: Pharynx normal.? Neck: Normal inspection.? Neck supple.? CVS: Normal heart rate and rhythm.? Pulses normal.? Respiratory: No respiratory distress.? Breath sounds normal.? Abdomen: Soft and nontender.? Skin: Skin warm and dry.? Normal skin color.? Normal skin turgor.? Extremities: No lower extremity edema.? No calf ttp. 5/5 strength to bilateral upper and lower extremities Neuro: Oriented X 3.? No motor deficit.? No sensory deficit. CN 2-12 intact . Normal finger to nose, heel to barajas, negative romberg and pronator drift. Ambulating w/ steady gait normal coordination NIHSS-0 Course Course Course Narrative: RME: 28yo F w/PMHx HTN, anemia, tension ALVAREZ, c/o worsening ALVAREZ's over the past 2 weeks, right sided, pounding. Reports lingering pain behind right eye. Took 2 Excedrin this AM w/o relief. Denies visual changes/loss, N/V, fever. reports compliance w/BP meds, takes them at night. EKG, Labs, Viral testing ordered Full HPI, ROS and PE to be performed by primary ED provider. Reevaluation(s) Reevaluation #1: CBC appears to be around patient's baseline with a normocytic anemia. Chemistry unremarkable, EKG nonischemic. Perc negative. Head CT shows no acute bleed or territorial infarctions, no masses are demonstrated paranasal sinuses and mastoid air cells are clear. This is reassuring. Patient's neurological assessment still intact. Time: 15:36 Reevaluation #2: Patient feeling slightly better, sumatriptan also ordered. Will check eye pressures. Normal inflammatory markers. Sign-out to [facility] Eye pressure L -22 R-18 ( no signs of glaucoma.) Time: 16:14 Reevaluation #3: Patient re-evaluated, she reports feeling much better. Will discharge the patient to follow-up with PCP and Neurology. Time: 19:25 Medications Administered Discontinued Medications Generic Name Dose Route Start Last Admin Trade Name Freq PRN Reason Stop Dose Admin Diphenhydramine HCl 50 mg 08/03/23 15:32 08/03/23 15:43 Diphenhydramine Hcl 25 Mg Capsule PO 08/03/23 15:33 50 mg ONCE ONE Administration Ketorolac Tromethamine 30 mg 08/03/23 15:32 08/03/23 15:44 Ketorolac Tromethamine 15 Mg/Ml Vial IM 08/03/23 15:33 30 mg ONCE ONE Administration Metoclopramide HCl 10 mg 08/03/23 15:32 08/03/23 15:42 Metoclopramide Hcl 10 Mg Tablet PO 08/03/23 15:33 10 mg ONCE ONE Administration Sumatriptan Succinate 6 mg 08/03/23 16:03 08/03/23 16:34 Sumatriptan Succinate 6 Mg/0.5 Ml Vial SUBCUT 08/03/23 16:04 6 mg ONCE ONE Administration Medical Decision Making Medical Decision Making [facility] Narrative: 1530 28 yo F presents w/ R sided headache localized behind r eye w/ tearingx 2 weeks. Hx of migranes PE benign NIHSS-0 Likely cluster headache vs headache versus migraine versus temporal arteritis versus sinusitis. Unlikely intracranial hemorrhage, stroke, posterior stroke, ruptured aneurysm. HTN likely secondary to pain, unlikely hypertensive urgency, emergency, acute closed angle glaucoma, wet macular degeneration. Based off history and physical exam unlikely meningitis, encephalitis Plan at this time pain meds, high flow oxygen, labs, imaging that were ordered from triage Differential Diagnosis Differential Diagnoses: The differential diagnosis associated with the presentation includes Likely cluster headache headache versus migraine versus temporal arteritis versus sinusitis. Unlikely intracranial hemorrhage, stroke, posterior stroke, ruptured aneurysm. HTN likely secondary to pain, unlikely hypertensive urgency, emergency, acute closed angle glaucoma, wet macular degeneration. Based off history and physical exam unlikely meningitis, encephalitis Admission/Observation Consideration of admission/observation: Escalation of care including admission/observation considered Unlikely Lab Data [facility] Lab Attestation statement: I reviewed the patient's lab results. 08/03/23 14:04 08/03/23 14:04 Labs: Lab Results 08/03/23 08/03/23 Range/Units 14:04 14:05 WBC 5.5 (4.8-10.8) X10*3/uL RBC 4.14 L (4.20-5.50) X10*6/uL Hgb 10.7 L (12.0-16.0) g/dl Hct 33.8 L (37.0-47.0) % MCV 81.6 (80.0-98.0) fL MCH 25.8 L (27.0-33.0) pg MCHC 31.7 (31.0-35.0) g/dl RDW 17.7 H (11.0-16.0) % Plt Count 447 H (160-400) X10*3/uL MPV 8.6 L (9.4-12.3) fL Immature Gran % (Auto) 0.4 (0.0-0.4) % Neut % (Auto) 47.9 (45-73) % Lymph % (Auto) 42.3 H (20-40) % [place] % (Auto) 9.0 (2-11) % Eos % (Auto) 0.2 (0-4) % Baso % (Auto) 0.2 (0-2) % Lymph # (Auto) 2.3 (1.2-4.9) X10*3/uL [place] # (Auto) 0.5 (0.1-1.2) X10*3/uL Eos # (Auto) 0.0 (0.0-0.4) X10*3/uL Baso # (Auto) 0.0 (0.0-0.2) X10*3/uL Abs Immat Gran (auto) 0.02 (0.00-0.03) X10*3/uL Absolute Neuts (auto) 2.6 (2.0-8.3) x10*3/uL Absolute Nucleated RBC 0.000 (0.0-0.012) X10*3/uL Nucleated RBC % (auto) 0.0 (0.0-0.2) /100WBC ESR 16 (0-20) MM/HR PT 11.1 (11.1-13.3) SEC INR 0.9 (0.9-1.1) Sodium 140 (135-145) mmol/L Potassium 3.8 (3.3-5.1) mmol/L Chloride 108 (96-108) mmol/L Carbon Dioxide 24 (22-29) mmol/L Anion Gap 12 (12-20) BUN 9 (9-16) mg/dL Creatinine 0.77 (0.5-1.4) mg/dL Estim Creat Clear Calc 160.0 Estimated GFR > 60 Random Glucose 90 (60-115) mg/dL Calcium 9.3 (8.4-10.2) mg/dL Troponin I High Sens < 2.7 (<3.5-17.0) ng/L C-Reactive Protein 0.59 H (< or = 0.50) mg/dL COVID-19 (DERRICK) Negative (Negative) COVID-19 Clin Com See Note Influenza Type A (ULICES) Negative (Negative) Influenza Type B (ULICES) Negative (Negative) Influenza A & B Note See Note Independent Interpretation I performed an independent interpretation of an: CT Scan ( CT/CT head/brain wo IV con IMPRESSION: There are no acute bleeds or territorial infarcts. No masses are demonstrated. The paranasal sinuses and mastoid air cells are clear.) Radiology Impression Discussion of test interpretation with radiology: I have reviewed the radiologist's reading. External Record Review External record reviewed: Inpatient record, Office record, Outpatient record, Prior outpatient labs, Prior outpatient radiology, Primary care record and Outside ED record Prescription Management I considered prescription management with: Pain Medication Critical Care Time Critical Care Time Critical Care Time: No Discharge Plan Discharge Clinical Impression: Cluster headache Patient Disposition: Home, Self-Care Instructions: Cluster Headache (ED) Additional Instructions: Take your medications as prescribed. If you were prescribed antibiotics today, it is important that you take your medication to their entirety, do not skip any doses, do not finish them early. Follow-up with your primary care provider this week. Return to the emergency department with new or worsening symptoms. Such as fevers, chills, chest pain, shortness of breath, nausea, vomiting, dizziness, headache, vision changes, lethargy In case of emergency call 911 Toradol has been sent to your pharmacy, you tolerated this well in the department. Please take this as prescribed do not take this with ibuprofen, or other NSAIDs, do not mix this with alcohol. Side effects of this medication including increased risk for bleeding and possible kidney injury. Please take Reglan min a drill together, taking Reglan alone can lead to involuntary muscle spasms. Prescriptions: New ketorolac 10 mg tablet 10 mg PO TID PRN (Reason: pain) 5 Days Qty: 15 0RF diphenhydramine HCl [Benadryl] 25 mg capsule 25 mg PO TID PRN (Reason: allergic reaction) Qty: 20 0RF metoclopramide HCl [Reglan] 10 mg tablet 10 mg PO Q6H PRN (Reason: headache) Qty: 20 0RF No Action metoprolol succinate 50 mg tablet extended release 24 hr 50 mg PO DAILY Qty: 30 2RF ibuprofen 800 mg tablet 800 mg PO Q8H PRN (Reason: pain) Qty: 30 0RF Referrals: [facility] [place] Neuro/Sleep [Provider Group] - 2 days
--- NOTE | 2023-08-03 13:53 | ECG_ITS ---
Test Reason : HYPERTENSION Blood Pressure : / mmHG Vent. Rate : 070 BPM Atrial Rate : 070 BPM P-R Int : 182 ms QRS Dur : 080 ms QT Int : 432 ms P-R-T Axes : 047 009 014 degrees QTc Int : 466 ms Normal sinus rhythm Minimal voltage criteria for LVH, may be normal variant ( R in aVL ) Nonspecific T wave abnormality Prolonged QT RSR' or QR pattern in V1 suggests right ventricular conduction delay Abnormal ECG When compared with ECG of 04-APR-2023 14:05, Nonspecific T wave abnormality now evident in Lateral leads Referred By: Niya Villegas Electronically Signed By:PEDRO LUIS BARRETO MD
[2023-08-03 14:10] LABS: MANUAL DIFF FLAG NO
[2023-08-03 14:11] LABS: Basophils Percent Auto 0.2 % (0-2); Eosinophils Percent Auto 0.2 % (0-4); Hematocrit 33.8 % (37.0-47.0); Hemoglobin 10.7 g/dl (12.0-16.0); Imm Gran Abs Auto 0.02 X10*3/uL (0.00-0.03); Imm Gran Pct Auto 0.4 % (0.0-0.4); Lymphocytes Absolute Auto 2.3 X10*3/uL (1.2-4.9); Lymphocytes Percent Auto 42.3 % (20-40); Mean Corpuscular HGB Conc 31.7 g/dl (31.0-35.0); Mean Corpuscular Hemoglobin 25.8 pg (27.0-33.0); Mean Corpuscular Volume 81.6 fL (80.0-98.0); Mean Platelet Volume 8.6 fL (9.4-12.3); Monocytes Absolute Auto 0.5 X10*3/uL (0.1-1.2); Neutrophils Absolute Auto 2.6 x10*3/uL (2.0-8.3); Neutrophils Percent Auto 47.9 % (45-73); Platelet Count 447 X10*3/uL (160-400); Red Blood Count 4.14 X10*6/uL (4.20-5.50); Red Cell Distribution Width 17.7 % (11.0-16.0); White Blood Count 5.5 X10*3/uL (4.8-10.8)
[2023-08-03 14:16] LABS: INTERNATIONAL NORM RATIO 0.9 (0.9-1.1); Prothrombin Time 11.1 SEC (11.1-13.3)
[2023-08-03 14:28] LABS: Anion Gap 12 (12-20); Blood Urea Nitrogen 9 mg/dL (9-16); Calcium 9.3 mg/dL (8.4-10.2); Carbon Dioxide 24 mmol/L (22-29); Chloride 108 mmol/L (96-108); Estimated Glomerular Filt Rate > 60; Glucose Random 90 mg/dL (60-115); Potassium 3.8 mmol/L (3.3-5.1); Sodium 140 mmol/L (135-145)
[2023-08-03 14:34] LABS: COVID-19 Test Negative (Negative); IDNOW Serial# 08D9AD1C
[2023-08-03 14:35] LABS: IDNOW Serial# 9DB6401D; Influenza A Negative (Negative); Influenza B2 Negative (Negative)
[2023-08-03 14:40] LABS: Troponin-I High Sensitivity < 2.7 ng/L (<3.5-17.0)
[2023-08-03 15:16] VITALS: BP 168/108; PULSE 74; RESP 18; TEMP 37.1; O2SAT 99
--- NOTE | 2023-08-03 15:22 | PC.NURSE ---
Patient presents with headache that has been consistently happening daily for the past 2 weeks. Patient states that she has been woken up from sleep with a knocking sensation to the left side of her head. Pain is described as a sharp and throbbing sensation, somewhat relieved by ibuprofen 800mg. Patient is alert and oriented, no s/s of distress noted at this time.
[2023-08-03] MEDS: Metoclopramide HCl 10 MG TABLET PO (15:42)
[2023-08-03] MEDS: diphenhydrAMINE HCL 25 MG CAPSULE 50 MG PO (15:43)
[2023-08-03] MEDS: Ketorolac Tromethamine 15 MG/ML VIAL 30 MG IM (15:44)
--- NOTE | 2023-08-03 15:48 | PC.NURSE ---
pt a&o x4, pleasant, calm, and cooperative. pt medicated per nov and placed on O2 per KEILA Cadet for question of cluster headache. will remain on O2 for 20-30 min. pt resting quietly on stretcher in no apparent distress. rr even/unlabored. on bedside monitor. call mackenzie within reach.
[2023-08-03 15:52] LABS: C Reactive Protein 0.59 mg/dL (< or = 0.50)
[2023-08-03 16:10] LABS: Erythrocyte Sedimentation Rate 16 MM/HR (0-20)
[2023-08-03 16:12] VITALS: BP 168/106; PULSE 62; RESP 16; O2SAT 100
[2023-08-03] MEDS: SUMAtriptan succinate 6 MG/0.5 ML VIAL SUBCUT (16:34)
--- NOTE | 2023-08-03 16:45 | PC.NURSE ---
after administration of sumatriptan, pt stated she felt funny like a lump in her throat. pt tearful and anxious. airway patent, pt tolerating secretions, speaking in full complete sentences. pt on bedside monitor, in NSR. RR wnl. O2 100% on room air. provider notified.
--- NOTE | 2023-08-03 17:59 | PC.NURSE ---
pt sleeping on stretcher. rr even/unlabored. call mackenzie within reach.
== END 2023-08-03 19:35 | disposition home or self-care (01) ==
PROVIDERS: Physician Assistant; Emergency Provider Emergency Medicine; PCP Nurse Practitioner Family
DX: G44.009 Cluster headache syndrome, unspecified, not intractable (principal); D64.9 Anemia, unspecified; R94.31 Abnormal electrocardiogram [ECG] [EKG]; I10 Essential (primary) hypertension; F17.210 Nicotine dependence, cigarettes, uncomplicated; Z11.52 Encounter for screening for COVID-19; Z20.822 Contact with and (suspected) exposure to COVID-19; Z71.6 Tobacco abuse counseling; Z79.899 Other long term (current) drug therapy
CPT/HCPCS: 36415; 70450; 80048; 84484; 85025; 85610; 85652; 86140; 87502; 87635; 93005; 96372; 99284; 99285; J1885; J3030

== ENCOUNTER 2024-01-22 23:08 | Emergency (ER) | payer OTHER, SELFPAY ==
[2024-01-22 23:13] VITALS: BP 154/102; PULSE 78; RESP 18; TEMP 36.4; O2SAT 98; BMI 56.1
[2024-01-22 23:54] LABS: MANUAL DIFF FLAG NO
[2024-01-22 23:55] LABS: Basophils Percent Auto 0.1 % (0-2); Eosinophils Percent Auto 0.1 % (0-4); Hematocrit 34.8 % (37.0-47.0); Hemoglobin 11.7 g/dl (12.0-16.0); Imm Gran Abs Auto 0.06 X10*3/uL (0.00-0.03); Imm Gran Pct Auto 0.4 % (0.0-0.4); Lymphocytes Absolute Auto 2.9 X10*3/uL (1.2-4.9); Lymphocytes Percent Auto 18.1 % (20-40); Mean Corpuscular HGB Conc 33.6 g/dl (31.0-35.0); Mean Corpuscular Hemoglobin 27.9 pg (27.0-33.0); Mean Corpuscular Volume 82.9 fL (80.0-98.0); Mean Platelet Volume 8.4 fL (9.4-12.3); Monocytes Absolute Auto 0.8 X10*3/uL (0.1-1.2); Monocytes Percent Auto 4.9 % (2-11); Neutrophils Absolute Auto 12.4 x10*3/uL (2.0-8.3); Neutrophils Percent Auto 76.4 % (45-73); Platelet Count 445 X10*3/uL (160-400); Red Cell Distribution Width 16.4 % (11.0-16.0); White Blood Count 16.2 X10*3/uL (4.8-10.8)
[2024-01-22 23:56] LABS: Appearance Urine Turbid; Color Urine Dark Yellow; Glucose Urine UA Negative (Negative); Leukocyte Esterase Urine Large (3+) (Negative); Nitrite Urine Positive (Negative); PH 6.5 (5.0-9.0); UMIC TRIGGER UACC YES; Urine Blood Large (3+) (Negative); Urine Ketones Negative (Negative); Urine Protein 100 (2+) mg/dL (Neg-Trace)
[2024-01-23 00:07] LABS: Alanine Aminotransferase 22 U/L (0-31); Albumin Level 4.3 g/dL (3.5-5.0); Alkaline Phosphatase 75 U/L (39-117); Anion Gap 14 (12-20); Aspartate Amino Transferase 20 U/L (5-31); Bilirubin Total 0.3 mg/dL (0.0-1.0); Blood Urea Nitrogen 11 mg/dL (9-16); Calcium 9.4 mg/dL (8.4-10.2); Carbon Dioxide 23 mmol/L (22-29); Chloride 106 mmol/L (96-108); Creatinine Clr Calc Pharmacy 148.6; Estimated Glomerular Filt Rate > 60; Glucose Random 95 mg/dL (60-115); Potassium 3.9 mmol/L (3.3-5.1); Sodium 139 mmol/L (135-145); Total Protein 7.9 g/dL (6.5-8.0)
[2024-01-23 00:09] LABS: Bacteria Urine None Seen (None Seen); Hyaline Casts Urine 0-2 /LPF (0-2); RBC Urine >20 /HPF (0-2); Squamous Epithelial Cell Urine 0-2 /HPF (0-2); UACC Culture Trigger YES
[2024-01-23 01:48] LABS: UPreg QC Valid YES; Urine Pregnancy NEGATIVE (NEGATIVE)
--- NOTE | 2024-01-23 02:41 | ED.ABDPAIN ---
HPI - Abdominal Pain General Chief Complaint: Abdominal Pain Stated Complaint: UTI? Kidney infection? Time Seen by Provider: 01/23/24 02:17 Source: patient Mode of arrival: ambulatory Limitations: no limitations History of Present Illness HPI narrative: Patient comes to the emergency room complaining of left-sided flank pain for a few days. Patient states that for the last 10 days, patient has had blood in the urine. Initially, patient states that she was not sure if she had hematuria or it was secondary to her menstrual period. Patient states that since her period stopped, she continues having hematuria and now she has left-sided flank pain. Complaining of chills, no fever. Related Data Previous Rx's ?Medication ?Instructions ?Recorded ibuprofen 800 mg tablet 800 mg PO Q8H PRN pain #30 tabs 12/09/22 diphenhydramine HCl 25 mg capsule 25 mg PO TID PRN allergic reaction 08/03/23 (Benadryl) #20 caps ketorolac 10 mg tablet 10 mg PO TID PRN pain 5 days #15 08/03/23 tabs metoclopramide HCl 10 mg tablet 10 mg PO Q6H PRN headache #20 tabs 08/03/23 (Reglan) metoprolol succinate 50 mg 50 mg PO DAILY #30 tabs 08/03/23 tablet,extended release 24 hr levofloxacin 500 mg tablet 500 mg PO DAILY #9 tabs 01/23/24 Allergies Allergy/AdvReac Type Severity Reaction Status Date / Time No Known Allergies Allergy Verified 01/22/24 23:15 [No Known Allergies*] Review of Systems Review of Systems Constitutional : No Weight loss, No Fever, No Chills, No Night Sweats, No Fatigue, No Malaise ENT/Mouth : No Hearing loss, No Ear Pain, No Nasal Congestion, No Sinus Pain, No Hoarseness, No sore throat, No Rhinorrhea, No Swallowing Difficulty Eyes: No Eye Pain, No Swelling, No Redness, No Foreign Body, No Discharge, No Vision Changes Cardiovascular : No Chest Pain, No SOB, No Dyspnea on Exertion, No Orthopnea, No Edema, No Palpitations Respiratory : No Cough, No Sputum, No Wheezing, No Smoke Exposure, No Dyspnea Gastrointestinal : No Nausea, No Vomiting, No Diarrhea, No Constipation, No abdominal Pain, No Hematochezia, No Melena Genitourinary : no irregular bleeding, complaining of dysuria, hematuria, left-sided flank pain Musculoskeletal : No joint pain, No Myalgias, No Joint Swelling Skin : No Skin Lesions, No rash Neuro : No Weakness, No Numbness, No Paresthesias, No Loss of Consciousness, No Dizziness, No Headache Psych : No Anxiety/Panic, No Depression, No SI/HI/AH/VH, No Social Issues, Heme/Lymph: No Bruising, No Bleeding,No Lymphadenopathy Endocrine : No Polyuria, No Polydipsia, No Temperature Intolerance [facility] Past Medical History Medical History Morbid obesity with BMI of 50.0-59.9, adult Left knee pain Bilateral ankle pain Back pain Right knee pain Screening for diabetes mellitus Screening for hypothyroidism Encounter to establish care Surgical History [place] teeth removed History of Family History Family History Mother High blood pressure Sickle cell anemia Father Cancer Social History Social History Housing: Apartment Alcohol intake: current Alcohol intake frequency: holidays/special occasions only Patient Tobacco Use Status: Current everyday Tobacco user Tobacco use type: Cigarette Cigarettes Per Day: 3 e-Cigarette/Vaping Use: Never Used Second Hand Smoke Exposure: Yes Substance Use Type: Marijuana Advance Directives: No Advance Directives Information Provided: Yes Do you have a plan to hurt others: No Plan service: No Current occupational status: unemployed Cognitive needs: No Hearing needs: No Vision needs: Yes Physical Exam ED Vital Signs: Vital Signs - 24 hr 01/22/24 23:13 Temperature 97.6 F Pulse Rate 78 Respiratory Rate 18 Blood Pressure 154/102 H Pulse Oximetry 98 Oxygen Delivery Method Room Air BMI result Body Mass Index 56.1 Const Other: Appearance: Alert. Oriented X3. No acute distress. Well-appearing Eyes: Pupils equal, round and reactive to light. ENT: Pharynx normal. Neck: Normal inspection. Neck supple. No lymph nodes noted. No crepitus CVS: Normal heart rate and rhythm. Pulses normal. Normal S1 and S2 Respiratory: No respiratory distress. Breath sounds normal. No Wheezing. No rales Abdomen: Soft and nontender. No rigidity. No distention. Left-sided flank pain and left abdominal pain. No rebound, no guarding Skin: Skin warm and dry. Normal skin color. Normal skin turgor. Extremities: No lower extremity edema. No Lacerations. No Rash Neuro: Oriented X 3. No motor deficit. No sensory deficit. Moving all extremities. No slurred speech. CN 2 through 12 grossly intact Psych: calm, cooperative, normal affect Medical Decision Making Medical Decision Making [facility] Narrative: -my interpretation of labs: Patient's white blood cell count 16.2, lactic acid is normal, chemistry normal, urinalysis positive for UTI. Vitals normal, no fever, no hypotension, not tachycardic -patient was given 1 dose of p.o. levofloxacin. Patient has normal vitals, no fever, no signs of sepsis. -patient does have a UTI, given the patient's report of back pain, patient clinically has pyelonephritis. Differential Diagnosis Differential Diagnoses: The differential diagnosis associated with the presentation includes (UTI, pyelonephritis, kidney stone) Lab Data [facility] Lab Attestation statement: I reviewed the patient's lab results. 01/22/24 23:48 01/22/24 23:48 Labs: Lab Results 01/22/24 01/23/24 Range/Units 23:48 02:33 WBC 16.2 H (4.8-10.8) X10*3/uL RBC 4.20 (4.20-5.50) X10*6/uL Hgb 11.7 L (12.0-16.0) g/dl Hct 34.8 L (37.0-47.0) % MCV 82.9 (80.0-98.0) fL MCH 27.9 (27.0-33.0) pg MCHC 33.6 (31.0-35.0) g/dl RDW 16.4 H (11.0-16.0) % Plt Count 445 H (160-400) X10*3/uL MPV 8.4 L (9.4-12.3) fL Immature Gran % (Auto) 0.4 (0.0-0.4) % Neut % (Auto) 76.4 H (45-73) % Lymph % (Auto) 18.1 L (20-40) % [place] % (Auto) 4.9 (2-11) % Eos % (Auto) 0.1 (0-4) % Baso % (Auto) 0.1 (0-2) % Lymph # (Auto) 2.9 (1.2-4.9) X10*3/uL [place] # (Auto) 0.8 (0.1-1.2) X10*3/uL Eos # (Auto) 0.0 (0.0-0.4) X10*3/uL Baso # (Auto) 0.0 (0.0-0.2) X10*3/uL Abs Immat Gran (auto) 0.06 H (0.00-0.03) X10*3/uL Absolute Neuts (auto) 12.4 H (2.0-8.3) x10*3/uL Absolute Nucleated RBC 0.000 (0.0-0.012) X10*3/uL Nucleated RBC % (auto) 0.0 (0.0-0.2) /100WBC Sodium 139 (135-145) mmol/L Potassium 3.9 (3.3-5.1) mmol/L Chloride 106 (96-108) mmol/L Carbon Dioxide 23 (22-29) mmol/L Anion Gap 14 (12-20) BUN 11 (9-16) mg/dL Creatinine 0.82 (0.5-1.4) mg/dL Estim Creat Clear Calc 148.6 Estimated GFR > 60 Random Glucose 95 (60-115) mg/dL Lactic Acid 0.9 (0.5-2.0) mmol/L Calcium 9.4 (8.4-10.2) mg/dL Total Bilirubin 0.3 (0.0-1.0) mg/dL AST 20 (5-31) U/L ALT 22 (0-31) U/L Alkaline Phosphatase 75 (39-117) U/L Total Protein 7.9 (6.5-8.0) g/dL Albumin 4.3 (3.5-5.0) g/dL Urine Color Dark Yellow Urine Appearance Turbid Urine pH 6.5 (5.0-9.0) Ur Specific [place] 1.020 (1.005-1.025) Urine Protein 100 (2+) H (Neg-Trace) mg/dL Urine Glucose (UA) Negative (Negative) mg/dL Urine Ketones Negative (Negative) mg/dL Urine Blood Large (3+) H (Negative) Urine Nitrite Positive H (Negative) Ur Leukocyte Esterase Large (3+) H (Negative) Urine RBC >20 H (0-2) /HPF Urine WBC 11-20 (0-5) /HPF Ur Squamous Epith Cells 0-2 (0-2) /HPF Urine Bacteria None Seen (None Seen) Hyaline Casts 0-2 (0-2) /LPF Urine Test NEGATIVE (NEGATIVE) Discharge Plan Discharge Clinical Impression: Pyelonephritis Patient Disposition: Home, Self-Care Instructions: Kidney Infection (ED) Additional Instructions: Please follow-up with your primary care physician tomorrow. If you have any worsening or new symptoms, please return to the emergency room or call 911 Prescriptions: New levofloxacin 500 mg tablet 500 mg PO DAILY Qty: 9 0RF No Action metoprolol succinate 50 mg tablet extended release 24 hr 50 mg PO DAILY Qty: 30 2RF ketorolac 10 mg tablet 10 mg PO TID PRN (Reason: pain) 5 Days Qty: 15 0RF diphenhydramine HCl [Benadryl] 25 mg capsule 25 mg PO TID PRN (Reason: allergic reaction) Qty: 20 0RF metoclopramide HCl [Reglan] 10 mg tablet 10 mg PO Q6H PRN (Reason: headache) Qty: 20 0RF ibuprofen 800 mg tablet 800 mg PO Q8H PRN (Reason: pain) Qty: 30 0RF Print Language: Cymro
[2024-01-23 02:49] LABS: Lactic Acid 0.9 mmol/L (0.5-2.0)
[2024-01-23] MEDS: levoFLOXacin 750 MG TABLET PO (03:02)
[2024-01-23 03:04] VITALS: BP 145/99; PULSE 80; RESP 17; TEMP 36.8; O2SAT 97
[2024-01-23 03:05] VITALS: BP 145/99; PULSE 80; RESP 17; TEMP 36.8; O2SAT 97
== END 2024-01-23 03:06 | disposition home or self-care (01) ==
PROVIDERS: Emergency Provider Emergency Medicine
DX: N12 Tubulo-interstitial nephritis, not specified as acute or chronic (principal); R10.9 Unspecified abdominal pain; R31.9 Hematuria, unspecified
CPT/HCPCS: 36415; 80053; 81001; 81025; 83605; 85025; 87040; 87086; 87088; 87186; 99283; 99284

== ENCOUNTER 2025-07-11 09:37 | Outpatient (REF) | payer OTHER, SELFPAY ==
[2025-07-11 11:15] LABS: MANUAL DIFF FLAG NO
[2025-07-11 11:59] LABS: Hematocrit 32.9 % (37.0-47.0); Hemoglobin 10.3 g/dl (12.0-16.0); Imm Gran Abs Auto 0.02 X10*3/uL (0.00-0.03); Imm Gran Pct Auto 0.2 % (0.0-0.4); Lymphocytes Absolute Auto 2.9 X10*3/uL (1.2-4.9); Mean Corpuscular HGB Conc 31.3 g/dl (31.0-35.0); Mean Corpuscular Hemoglobin 25.2 pg (27.0-33.0); Mean Corpuscular Volume 80.4 fL (80.0-98.0); NRBC Abs Auto 0.000 X10*3/uL (0.0-0.012); NRBC Pct Auto 0.0 /100WBC (0.0-0.2); Platelet Count 456 X10*3/uL (160-400); Red Blood Count 4.09 X10*6/uL (4.20-5.50); White Blood Count 10.1 X10*3/uL (4.8-10.8)
[2025-07-11 12:28] LABS: Alanine Aminotransferase 19 U/L (0-31); Albumin Level 4.3 g/dL (3.5-5.0); Alkaline Phosphatase 81 U/L (39-117); Anion Gap 10 (12-20); Aspartate Amino Transferase 23 U/L (5-31); Blood Urea Nitrogen 7 mg/dL (9-16); Calcium 9.2 mg/dL (8.4-10.2); Carbon Dioxide 26 mmol/L (22-29); Chloride 107 mmol/L (96-108); Cholesterol 175 mg/dL (<200); Estimated Glomerular Filt Rate > 60; HDL Cholesterol 49 mg/dL (>40); Potassium 3.9 mmol/L (3.3-5.1); Sodium 139 mmol/L (135-145); Total Protein 7.6 g/dL (6.5-8.0); Triglycerides 47 mg/dL (<150)
[2025-07-11 13:21] LABS: Reflex LDLD? No
== END 2025-07-11 09:38 | disposition home or self-care (01) ==
LOC: HO.LAB 09:37
PROVIDERS: PCP Internal Medicine; Visit Provider Student in an Organized Health Care Education/Training Program
DX: I10 Essential (primary) hypertension (principal); E66.01 Morbid (severe) obesity due to excess calories; M54.16 Radiculopathy, lumbar region; L73.9 Follicular disorder, unspecified; L98.9 Disorder of the skin and subcutaneous tissue, unspecified; Z79.899 Other long term (current) drug therapy; Z68.43 Body mass index [BMI] 50.0-59.9, adult
CPT/HCPCS: 36415; 80053; 80061; 85025

== ENCOUNTER 2025-08-08 09:46 | Outpatient (AMB) | payer OTHER, SELFPAY ==
[2025-08-08 09:53] VITALS: BP 146/90; PULSE 78; RESP 16; O2SAT 100; BMI 57.8
--- NOTE | 2025-08-08 09:53 | MHC.OFFVIS ---
Vital Signs 08/08/25 09:53 Height 5 ft 4 in Weight 337 lb BMI 57.8 BP 146/90 H Blood Pressure Location Rt brachial Position Sitting Respiration 16 Pulse 78 Pulse Source Pulse Oximeter Pulse Oximetry (%) 100 Oxygen Delivery Method Room Air Intake Visit Reasons: Radiculopathy, lumbar region Commercial Loan Officer Required: No Accompanied by: Self / Same As Patient Allergies No Known Allergies (No Known Allergies*) Allergy (Verified 08/08/25 09:54) HPI Comments Details: The patient is a 30 year old individual presenting for follow-up of chronic low back pain with left-sided radiculopathy. The patient was last seen two years ago in December 2022, and the lapse in care was due to a loss of health insurance. The patient's chronic low back pain and coccyx pain began after the vaginal delivery of the second child in 2019, for which the patient received an epidural. An MRI from two years ago revealed left hemisacralization of L5, mild degenerative changes, and mild neuroforaminal narrowing at L4-L5 without significant stenosis. Since that time, the pain has become significantly worse and is now described as being everywhere, though it is more severe on the left side. The patient's weight has increased from 319 pounds (BMI 54.7) two years ago to 337 pounds (BMI 57.8) at present. The patient has made dietary changes, including a tuna type diet, to facilitate weight loss but is unable to exercise due to the severity of the pain. Past interventions include physical therapy, which was attempted for a few weeks but was reported to be too painful. The patient takes medication for blood pressure but is not currently taking meloxicam or ibuprofen, and an unspecified pain medication prescribed by the PCP was ineffective. Denies any recent cough, cold, infection, fever or any significant changes in medical history since last office visit. Denies any changes to medications, medical history or recent hospitalizations. - Onset and Timing: Pain began in 2019 after childbirth. - Location: The patient describes the pain as being everywhere, but it is worse on the left side, involving the low back, thoracic back, buttocks, and left knee, with radicular symptoms into the left leg. - Exacerbating Factors: Pain is worsened by forward bending and certain movements during physical therapy. - Interference with Function: Pain significantly impacts daily activities, requiring extra time to get out of bed in the morning and preventing the patient from being able to exercise or maintain employment. PRIOR: Patient is a pleasant 27 years old morbidly obese female who presents today with chronic low back pain, coccyx pain and left knee pain. Patient reports low back pain started after she gave by vaginal delivery to her second child in 2019. She denies any recent trauma, injury or falls. Her back pain is mostly axial with intermittent radiation to her left lateral hip and thigh but not below left knee level. Patient reports a history of bilateral knee pain and reports today significant left knee pain with localized tenderness in the medial aspect of the knee. She also reports coccyx pain and left buttock spasms and discomfort with prolonged sitting. Pain is described as constant pulsing, throbbing, pounding, sharp, cutting, lacerating, dull, sore, hurting, aching and heavy. Pain is worsened by movement, bending forward, walking, standing, sitting, weather changes and relieved with rest and lying on her side. Left knee pain increased with walking and climbing stairs. Lumbosacral x-ray on 02/05/22 showed questionable mild posterior coccygeal subluxation. No evidence of acute compression deformities or subluxation of the lumbar spine. Disc spaces are preserved. The posterior elements are normal in appearance. Sacroiliac joints are symmetric. Patient denies any previous spine surgery or injections. She reports completing 4 months of physical therapy which was mostly focused on her lumbar spine. Denies previous pelvic PT for coccyx symptoms. Patient reports using a donut pillow at home while sitting. Patient has been taking Ibuprofen and Tylenol with continued symptoms. Denies any fever, weight changes, abdominal or groin pain, weakness, burning, tingling, numbness, bowel or bladder incontinence or saddle anesthesia. [facility] Medical History Morbid obesity with BMI of 50.0-59.9, adult Left knee pain Bilateral ankle pain Back pain Right knee pain Screening for diabetes mellitus Screening for hypothyroidism Encounter to establish care Surgical History [place] teeth removed History of Family History Mother High blood pressure Sickle cell anemia Father Cancer Social History Housing: Apartment Alcohol intake: current Alcohol intake frequency: holidays/special occasions only Patient Tobacco Use Status: Current everyday Tobacco user Tobacco use type: Cigarette Cigarettes Per Day: 3 e-Cigarette/Vaping Use: Never Used Second Hand Smoke Exposure: Yes Substance Use Type: Marijuana service: No Current occupational status: unemployed Cognitive needs: No Hearing needs: No Vision needs: Yes Review of Systems Const Details: - Constitutional: Reports weight gain. - Musculoskeletal: Reports widespread pain affecting the low back, thoracic back, buttocks, and left knee. - Neurological: Reports radicular symptoms into the left leg. - Endocrine: Denies diabetes. All systems reviewed & are unremarkable except as noted in HPI and below Physical Exam Vital Signs: Last Vital Signs Pulse 78 08/08/25 09:53 Resp 16 08/08/25 09:53 BP 146/90 H 08/08/25 09:53 Pulse Ox 100 08/08/25 09:53 Oxygen Delivery Method Room Air 08/08/25 09:53 BMI result Body Mass Index 57.8 On exam today: Appears afebrile. Morbidly obese. Alert and oriented. Mood and affect appropriate. Follows and participates in conversation appropriately. Respiratory effort is unlabored. No cough. Able to transition from sit to stand unassisted. Ambulates with bilaterally normal heel strike and toe off. General: Yes no CVA tenderness Back/Spine/Pelvis Other: Limited lumbar ROM due to pain and body habitus. Lumbar extension and axial rotations reproduce moderate pain, flexion is limited and reproduces mild to moderate pain. Demonstrates 5/5 strength of quadriceps bilaterally as well as flexion/dorsiflexion of bilateral feet against resistance. 2+ pedal pulses bilaterally. +2 patellar and achilles reflexes bilaterally. Facet loading test positive bilaterally. Isabella signs, Jose?s and Stinchfield tests are negative bilaterally. No groin pain with I/E hip rotations. Back: no CVA tenderness Cervical Spine: normal cervical lordosis, cervical ROM normal, cervical muscular tenderness, pain with cervical ROM and No Cervical spine tenderness Thoracic/Lumbar Spine: thoracic and lumbar spine normal to inspection, No Thoracic/lumbar spine scar(s), Lasegue's sign negative, straight leg raise negative bilaterally, pain with thoraco-lumbar ROM, paraspinal muscle tenderness, thoraco-lumbar ROM limited, No Thoracic/lumbar scoliosis, No thoracic spinal tenderness and lumbar spinal tenderness at L4 and at L5 Pelvis: buttock tenderness bilaterally Sacroiliac joints: bilaterally tender to palpation Extrem General: Yes capillary refill normal, Yes no clubbing, cyanosis or edema and Yes no calf tenderness Results Reviewed Results Reviewed: MR LUMBAR SPINE WITHOUT CONTRAST 11/18/22 FINDINGS: Transitional vertebral anatomy. 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 Normal anatomic alignment. Normal, homogeneous marrow signal throughout. The vertebral body heights are maintained. The intervertebral discs are of normal height and signal. The conus medullaris terminates at the level of L1. The distal spinal cord is normal in appearance. Mild subcutaneous edema within the soft tissues of the back from L3-L4. No additional significant abnormalities of the paraspinal musculature. Limited evaluation of the intra-abdominal structures without significant abnormalities. The abdominal aorta is of normal contour and caliber. AXIAL SPINAL LEVELS: L1-L2: Normal annular contour. There is mild bilateral facet joint arthropathy. There is a 0.3 cm T2 hyperintense synovial cyst posterior to the left facet joint. There is no neural foraminal stenosis. There is no spinal canal stenosis. L2-L3: Normal annular contour. There is mild bilateral facet joint arthropathy. There is no neural foraminal stenosis. There is no spinal canal stenosis. L3-L4: Normal annular contour. There is mild bilateral facet joint arthropathy. There is a 1.3 cm T2 hyperintense synovial cyst posterior to the left facet joint. There is no neural foraminal stenosis. There is no spinal canal stenosis. L4-L5: Shallow diffuse disc bulge. There is mild bilateral facet joint arthropathy. There is mild bilateral neural foraminal stenosis. There is no spinal canal stenosis. L5-S1: Normal annular contour. There is mild bilateral facet joint arthropathy. There is no neural foraminal stenosis. There is no spinal canal stenosis. IMPRESSION: Transitional vertebral anatomy. 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 Most notably, there are mild neural foraminal narrowings at L4-L5. No overt spinal canal stenosis or nerve root compression. Assessment & Plan Assessment & Plan (1) Mid back pain: Code(s): M54.9 - Dorsalgia, unspecified Category: Medical (2) Morbid obesity with BMI of 50.0-59.9, adult: Code(s): E66.01 - Morbid (severe) obesity due to excess calories; Z68.43 - Body mass index [BMI] 50.0-59.9, adult Category: Medical (3) Lumbar radicular pain: Code(s): M54.16 - Radiculopathy, lumbar region Category: Medical (4) Chronic low back pain: Code(s): M54.50 - Low back pain, unspecified; G89.29 - Other chronic pain Category: Medical (5) Lumbar spondylosis: Code(s): M47.816 - Spondylosis without myelopathy or radiculopathy, lumbar region Category: Medical (6) Muscle spasm of back: Code(s): M62.830 - Muscle spasm of back Category: Medical Plan For axial low back pain, we will proceed with Bilateral Diagnostic L3-L4 DR L5 MBBs with local and fluoroscopy. Expectations, risks and benefits were reviewed. Patient is aware she will be contacted to schedule this procedure. If she has significant relief from the diagnostic blocks for her axial low back pain, will consider either therapeutic injections or RFA depending on her preference. Given BMI>40 and insurance limitations, patient is not candidate for peripheral nerve stimulation. A referral will be sent for a weight management consultation. Patient will continue dietary and lifestyle modification to facilitate weight loss. All questions and concerns have been answered and patient agreed with the treatment plan. Follow up after injections and sooner as needed. Patient was informed and verbally consented to the use of an ambient scribe for clinic note documentation during this visit. Orders: Orders XR thoracic spine 3V Today M54.9 - Dorsalgia, unspecified Referrals Medical Weight Management Referral E66.01 - Morbid (severe) obesity due to excess calories, G89.29 - Other chronic pain, M54.16 - Radiculopathy, lumbar region, M54.50 - Low back pain, unspecified, M54.9 - Dorsalgia, unspecified, Z68.43 - Body mass index [BMI] 50.0-59.9, adult Coding Level of Care Code Est Pt Level 4 (23695) Complex visit Add On G2211 Diagnoses Mid back pain M54.9 Morbid obesity with BMI of 50.0-59.9, adult E66.01; Z68.43 Lumbar radicular pain M54.16 Chronic low back pain M54.50; G89.29 Lumbar spondylosis M47.816 Muscle spasm of back M62.830
== END 2025-08-08 10:22 | disposition home or self-care (01) ==
LOC: HO.PMC 09:47
PROVIDERS: PCP Student in an Organized Health Care Education/Training Program; Visit Provider Nurse Practitioner Family
DX: M54.9 Dorsalgia, unspecified (principal); E66.01 Morbid (severe) obesity due to excess calories; Z68.43 Body mass index [BMI] 50.0-59.9, adult; M54.16 Radiculopathy, lumbar region; M54.50 Low back pain, unspecified; G89.29 Other chronic pain; M47.816 Spondylosis without myelopathy or radiculopathy, lumbar region; M62.830 Muscle spasm of back
CPT/HCPCS: 99214

== ENCOUNTER → 2025-08-08 09:46 | Outpatient (BNVA) | payer OTHER, SELFPAY | PROVIDERS: PCP Student in an Organized Health Care Education/Training Program; Visit Provider Nurse Practitioner Family | DX: M47.26 Other spondylosis with radiculopathy, lumbar region (principal); E66.01 Morbid (severe) obesity due to excess calories; M54.50 Low back pain, unspecified; G89.29 Other chronic pain; M62.830 Muscle spasm of back; Z68.43 Body mass index [BMI] 50.0-59.9, adult | CPT/HCPCS: 99212 ==

== ENCOUNTER 2025-08-15 08:58 | Outpatient (REF) | payer OTHER, SELFPAY ==
--- NOTE | ~2025-08-15 | XR_ITS ---
EXAMINATION: XR THORACIC SPINE CLINICAL INFORMATION: M54.9 - Dorsalgia, unspecified COMPARISON: None available. TECHNIQUE: AP lateral and swimmer's projection FINDINGS: Mild S-shaped curvature. No acute cortical disruption or malalignment. No lytic or blastic lesions. XR/XR thoracic spine 3V IMPRESSION: Mild scoliosis versus positioning. No acute fracture or listhesis. Electronically signed by: Dale Cat MD 08/15/2025 09:29 AM [facility]
== END 2025-08-15 08:59 | disposition home or self-care (01) ==
LOC: HO.XRAY 08:58
PROVIDERS: PCP Student in an Organized Health Care Education/Training Program; Visit Provider Nurse Practitioner Family
DX: M54.9 Dorsalgia, unspecified (principal)
CPT/HCPCS: 72072

== ENCOUNTER → 2025-08-15 09:02 | Outpatient (BNV) | payer OTHER, SELFPAY | PROVIDERS: PCP Student in an Organized Health Care Education/Training Program; Visit Provider Radiology Diagnostic Radiology | DX: M54.9 Dorsalgia, unspecified (principal) | CPT/HCPCS: 72072 ==